=== PATIENT | female | born 1995 | race Caucasian/White ===

== ENCOUNTER 2017-04-05 08:56 | Emergency (ER) | payer MEDICAID ==
[2017-04-05 09:01] VITALS: TEMP 98.1
--- NOTE | 2017-04-05 09:08 | EDPHY ---
H & P Stated Complaint: lower back pain, nausea since this am Time Seen by Provider: 04/05/17 09:08 HPI/ROS: HPI: This is a 21-year-old female who presents with Chief Complaint: lower back pain, nausea since this am Location: Right flank Quality: pain Duration: 1 hour prior to arrival Signs and Symptoms: No fever, + nausea, no vomiting, no diarrhea, no dysuria, no hematuria, no vaginal discharge, no vaginal bleeding Timing: Sudden Severity: Severe Context: Patient complains of sudden onset of sharp constant right flank pain, nonradiating in nature, starting approximately 1 hour prior to arrival. Pain began while she was eating breakfast and sitting down. Denies any concern for muscular strain, heavy lifting or injury. Last menstrual period was 22-28 days ago. Denies any history of kidney stone. Modifying Factors: No [id number] pain medications tried. Comment: ROS: Constitutional: No fever, no chills, no weight loss Eyes: No blurred vision Respiratory: No shortness of breath, no cough Cardiovascular: No chest pain Gastrointestinal: No nausea, no vomiting no diarrhea Genitourinary: No dysuria Extremities: No myalgias Neurologic: No weakness, no numbness Skin: No rashes Hematologic: No bruising, no bleeding MEDICAL/SURGICAL/SOCIAL HISTORY: Generally healthy. Denies any surgical history. . Source: Patient Exam Limitations: No limitations - Personal History LMP (Females 10-55): 22-28 Days Ago Current Tetanus/Diphtheria Vaccine: Unsure Current Tetanus Diphtheria and Acellular Pertussis (TDAP): Unsure - Medical/Surgical History Hx Asthma: No Hx Chronic Respiratory Disease: No Hx Diabetes: No Hx Cardiac Disease: No Hx Renal Disease: No Hx Cirrhosis: No Hx Alcoholism: No Hx HIV/AIDS: No Hx Splenectomy or Spleen Trauma: No Other PMH: denies. no surgeries - Social History Smoking Status: Never smoked - Physical Exam Exam: CONSTITUTIONAL: Young adult female, holding right flank, appears uncomfortable but nontoxic in appearance, awake and alert, no obvious distress HEENT: Atraumatic and normocephalic, PERRL, EOMI. Tympanic membranes clear. Oropharynx clear, no exudate and moist pink mucosa. Airway patent. No lymphadenopathy. No meningismus. Cardiovascular: Normal S1/S2, regular rate, regular rhythm, without murmur rub or gallop. PULMONARY/CHEST: Symmetrical and nontender. Clear to auscultation bilaterally. Good air movement. No accessory muscle usage. Tachypneic. ABDOMEN: Soft, nondistended, nontender, no rebound, no guarding, no peritoneal signs, no masses or organomegaly. + right CVAT. EXTREMITIES: 2/2 pulses, no deformities, no clubbing, no cyanosis or edema. NEUROLOGICAL: no focal neuro deficits. GCS 15. SKIN: Warm and dry, no erythema. no rash. Good capillary refill. Constitutional: Initial Vital Signs Temperature (C) 36.7 C 04/05/17 08:59 Heart Rate 89 04/05/17 08:59 Respiratory Rate 22 H 04/05/17 08:59 Blood Pressure 170/107 H 04/05/17 08:59 O2 Sat (%) 98 04/05/17 08:59 O2 Delivery Mode Room Air Allergies/Adverse Reactions: No Known Allergies Allergy (Unverified 04/05/17 08:58) Home Medications: Medication Instructions Recorded Promethazine HCl 25 mg PO Q4 PRN #12 tablet 04/05/17 Tamsulosin HCl [Flomax 0.4 MG (*)] 0.4 mg PO DAILY #5 cap 04/05/17 levOFLOXACIN [levAQUIN (*)] 750 mg PO DAILY #10 tab 04/05/17 oxyCODONE/APAP 5/325 [Percocet 1 - 2 tab PO Q4H PRN #10 tab 04/05/17 5/325 (*)] Medical Decision Making - Diagnostics Imaging Results: Imaging Impressions Abdomen/Pelvis CT 04/05/17 09:13 Impression: 1. There is evidence for recent passage of a right-sided stone, which currently resides in the posterior right portion of the urinary bladder, measuring 2 x 3 x 2 mm. There is no evidence of nephrolithiasis. 2. Hepatomegaly with diffuse steatosis. 3. There is a 2.5 cm left ovarian cyst. Findings were discussed with Keke Zacarias PA-C at 11:05 AM, on 04/05/2017. Attention: This CT examination is specifically designed to evaluate patients who are clinically suspected of having acute obstructive uropathy. This examination does not use radiographic contrast, and as such, provides only a limited evaluation of the abdomen, pelvis, and retroperitoneum. If there is further clinical suspicion for pathological conditions other than obstructive uropathy, a complete CT evaluation of the abdomen and pelvis utilizing intravenous, oral, and rectal contrast should be considered. ED Course/Re-evaluation: Urinalysis, serum HCG, labs, IV fluids, IV and oral medications, CT abdomen and pelvis ordered Will evaluate for kidney stone. Given 2 L normal saline, p.o. Omer, IV Dilaudid, IV Toradol, IV Zofran with near complete relief of pain Serum glucose noted to be 348; no prior history of diabetes; hemoglobin A1c ordered; patient will need follow-up for new onset type 2 diabetes. Another 1 L normal saline ordered for a total of 2 L. No signs of acute kidney injury; electrolyte imbalance. Potassium 4.4. And no anion gap. No signs of DKA. 1113: called by radiologist who reports 2 mm stone in the bladder with mild right perinephric stranding consistent with mild pyelonephritis. No appendicitis. Incidentally noted a left ovarian cyst of 2.5 cm. Based on antibiogram; given IV Rocephin 1 g and will discharge on Levaquin 750 daily to complete a 10 day course for complicated urinary tract infection/ pyelonephritis. Urine sent for culture Patient is afebrile/tolerating p.o./no signs of SIRS or sepsis, will treat outpatient repeat FSBS 291 UAs consistent with mild dehydration; received 2 L normal saline and drinking oral liquids while in the ER. Advised to push fluids, strain urine, given strainer to take home, take all medications as directed, urology and PCP follow-up Differential Diagnosis: Abdominal pain in a female including but not limited to kidney stone, ovarian cyst, pelvic inflammatory disease, ovarian torsion, urinary tract infection, and appendicitis. - Data Points Laboratory Results: Laboratory Results 04/05/17 09:30 04/05/17 09:30 04/05/17 04/05/17 04/05/17 12:05 09:30 09:30 WBC RBC Hgb Hct MCV MCH MCHC RDW Plt Count MPV Neut % (Auto) Lymph % (Auto) [place] % (Auto) Eos % (Auto) Baso % (Auto) Nucleat RBC Rel Count Absolute Neuts (auto) Absolute Lymphs (auto) Absolute Monos (auto) Absolute Eos (auto) Absolute Basos (auto) Absolute Nucleated RBC Immature Gran % Seg Neutrophils % Lymphocytes % Monocytes % Eosinophils % Immature Gran # Absolute Seg Neuts Absolute Lymphocytes Absolute Monocytes Absolute Eosinophils RBC/WBC/PLT Morphology Atypical Lymphocytes Platelet Estimate Smear Review By Sodium Potassium Chloride Carbon Dioxide Anion Gap BUN Creatinine Estimated GFR Glucose Hemoglobin A1c Pending Estim Average Glucose Pending Calcium Total Bilirubin Conjugated Bilirubin Unconjugated Bilirubin AST ALT Alkaline Phosphatase Total Protein Albumin Lipase Beta HCG, Qual NEGATIVE Urine Color YELLOW Urine Appearance HAZY Urine pH 5.0 (5.0-7.5) Ur Specific Stacy > 1.035 H (1.002-1.030) Urine Protein 2+ H (NEGATIVE) Urine Ketones 1+ H (NEGATIVE) Urine Blood 1+ H (NEGATIVE) Urine Nitrate NEGATIVE (NEGATIVE) Urine Bilirubin NEGATIVE (NEGATIVE) Urine Urobilinogen NEGATIVE EU EU (0.2-1.0) Ur Leukocyte Esterase NEGATIVE (NEGATIVE) Urine RBC Pending Urine WBC Pending Ur Epithelial Cells Pending Urine Glucose 3+ H (NEGATIVE) 04/05/17 04/05/17 09:30 09:30 WBC 9.45 10^3/uL 10^3/uL (3.80-9.50) RBC 5.40 10^6/uL H 10^6/uL (4.18-5.33) Hgb 16.5 g/dL H g/dL (12.6-16.3) Hct 47.2 % H % (38.0-47.0) MCV 87.4 fL fL (81.5-99.8) MCH 30.6 pg pg (27.9-34.1) MCHC 35.0 g/dL g/dL (32.4-36.7) RDW 12.5 % % (11.5-15.2) Plt Count 356 10^3/uL 10^3/uL (150-400) MPV 9.9 fL fL (8.7-11.7) Neut % (Auto) 53.3 % % (39.3-74.2) Lymph % (Auto) 39.9 % % (15.0-45.0) [place] % (Auto) 4.6 % % (4.5-13.0) Eos % (Auto) 1.3 % % (0.6-7.6) Baso % (Auto) 0.4 % % (0.3-1.7) Nucleat RBC Rel Count 0.0 % % (0.0-0.2) Absolute Neuts (auto) 5.04 10^3/uL 10^3/uL (1.70-6.50) Absolute Lymphs (auto) 3.77 10^3/uL H 10^3/uL (1.00-3.00) Absolute Monos (auto) 0.43 10^3/uL 10^3/uL (0.30-0.80) Absolute Eos (auto) 0.12 10^3/uL 10^3/uL (0.03-0.40) Absolute Basos (auto) 0.04 10^3/uL 10^3/uL (0.02-0.10) Absolute Nucleated RBC 0.00 10^3/uL 10^3/uL (0-0.01) Immature Gran % 0.5 % % (0.0-1.1) Seg Neutrophils % 65 % % Lymphocytes % 29 % % Monocytes % 4 % % Eosinophils % 2 % % Immature Gran # 0.05 10^3/uL 10^3/uL (0.00-0.10) Absolute Seg Neuts 6.14 10^/uL 10^/uL (1.70-6.50) Absolute Lymphocytes 2.74 10^3/uL 10^3/uL (1.00-3.00) Absolute Monocytes 0.38 10^3/uL 10^3/uL (0.30-0.80) Absolute Eosinophils 0.19 10^3/uL 10^3/uL (0.03-0.40) RBC/WBC/PLT Morphology NORMAL (NORMAL) Atypical Lymphocytes 2+ H Platelet Estimate ADEQUATE (ADEQ) Smear Review By Pending Sodium 137 mEq/L mEq/L (134-144) Potassium 4.4 mEq/L mEq/L (3.5-5.2) Chloride 102 mEq/L mEq/L (97-110) Carbon Dioxide 19 mEq/l L mEq/l (22-31) Anion Gap 16 mEq/L mEq/L (8-16) BUN 8 mg/dL mg/dL (7-23) Creatinine 0.5 mg/dL L mg/dL (0.6-1.0) Estimated GFR > 60 Glucose 348 mg/dL H mg/dL (70-100) Hemoglobin A1c Estim Average Glucose Calcium 9.4 mg/dL mg/dL (8.5-10.4) Total Bilirubin 0.7 mg/dL mg/dL (0.1-1.4) Conjugated Bilirubin 0.3 mg/dL mg/dL (0.0-0.5) Unconjugated Bilirubin 0.4 mg/dL mg/dL (0.0-1.1) AST 46 IU/L IU/L (14-46) ALT 98 IU/L H IU/L (9-52) Alkaline Phosphatase 103 IU/L IU/L (38-126) Total Protein 7.3 g/dL g/dL (6.3-8.2) Albumin 4.2 g/dL g/dL (3.5-5.0) Lipase 85 IU/L IU/L (23-300) Beta HCG, Qual Urine Color Urine Appearance Urine pH Ur Specific Stacy Urine Protein Urine Ketones Urine Blood Urine Nitrate Urine Bilirubin Urine Urobilinogen Ur Leukocyte Esterase Urine RBC Urine WBC Ur Epithelial Cells Urine Glucose Medications Given: Discontinued Medications Hydrocodone Bitart/Acetaminophen (Omer 5/325) 1 tab PO EDNOW ONE Stop: 04/05/17 09:13 Last Admin: 04/05/17 09:25 Dose: 1 tab Hydromorphone HCl (Dilaudid) 1 mg IVP EDNOW ONE Stop: 04/05/17 09:38 Last Admin: 04/05/17 09:53 Dose: 1 mg Sodium Chloride (Ns) 1,000 mls @ 0 mls/hr IV ONCE ONE; Wide Open PRN Reason: Protocol Stop: 04/05/17 09:13 Last Admin: 04/05/17 09:26 Dose: 1,000 mls Sodium Chloride (Ns) 1,000 mls @ 0 mls/hr IV EDNOW ONE; Wide Open PRN Reason: Protocol Stop: 04/05/17 10:30 Last Admin: 04/05/17 11:00 Dose: 1,000 mls Ceftriaxone Sodium/Dextrose (Rocephin 1 Gm (Premix)) 50 mls @ 100 mls/hr IV EDNOW ONE PRN Reason: Protocol Stop: 04/05/17 11:41 Last Admin: 04/05/17 11:23 Dose: 50 mls Ketorolac Tromethamine (Toradol) 30 mg IVP EDNOW ONE Stop: 04/05/17 09:13 Last Admin: 04/05/17 09:26 Dose: 30 mg Ondansetron HCl (Zofran) 4 mg IVP EDNOW ONE Stop: 04/05/17 09:13 Last Admin: 04/05/17 09:26 Dose: 4 mg Tamsulosin HCl (Flomax) 0.4 mg PO EDNOW ONE Stop: 04/05/17 11:14 Last Admin: 04/05/17 11:23 Dose: 0.4 mg Departure - Departure Disposition: Home, Routine, Self-Care Clinical Impression: Pyelonephritis, Urinary bladder stone, Hyperglycemia Condition: Good Instructions: Urinary Tract Infection in Women (ED), Kidney Infection (ED), Hyperglycemia, Non-Diabetic (ED), Bladder Stones (ED) Additional Instructions: Please rest and drink plenty of fluids. Take all medications as directed. You will need to strain her urine for your kidney stone. If it does not pass in the next several days, please follow-up with Urology. Your serum glucose level is significantly elevated today. You will need to follow up with her primary care provider to determine if you have of new diagnosis of type 2 diabetes mellitus. Your primary care provider will decide if a diabetic medication needs to be started and which one. Please follow diabetic diet in the meantime. You will need to follow up with her primary care provider in the next few days and preferably sometime this week. Referrals: Samra Shearer MD [Primary Care Provider] - As per Instructions Zurdo Pedroza MD [Medical Doctor] - As per Instructions Prescriptions: levOFLOXACIN [levAQUIN (*)] 750 mg PO DAILY #10 tab oxyCODONE/APAP 5/325 [Percocet 5/325 (*)] 1 - 2 tab PO Q4H PRN #10 tab PRN Reason: Pain, Severe Promethazine HCl 25 mg PO Q4 PRN #12 tablet PRN Reason: Nausea/Vomiting, Use 1st Tamsulosin HCl [Flomax 0.4 MG (*)] 0.4 mg PO DAILY #5 cap
[2017-04-05] MEDS: HYDROCODONE/APAP 5/325 TAB PO ONE (09:25)
[2017-04-05] MEDS: ONDANSETRON 4 MG/2 ML VIAL IVP ONE (09:26)
[2017-04-05] MEDS: NS 1,000 ML IV ONE ×2 (09:26→11:00)
[2017-04-05] MEDS: KETOROLAC 30 MG/1 ML SDV IVP ONE (09:26)
[2017-04-05 09:44] LABS: % IMMATURE GRANULYOCYTES 0.5 % (0.0-1.1); ABSOLUTE IMMATURE GRANULOCYTES 0.05 10^3/uL (0.00-0.10); ADD DIFF? NO; ADD MORPH? NO; ADD SCAN? YES; FRAGMENT RBC FLAG 0 (0-99); HEMATOCRIT 47.2 % (38.0-47.0); HEMOGLOBIN 16.5 g/dL (12.6-16.3); LEFT SHIFT FLG 0 (0-99); LIPEMIA HEMOLYSIS FLAG 90 (0-99); MEAN CELL HEMOGLOBIN 30.6 pg (27.9-34.1); MEAN CELL VOLUME 87.4 fL (81.5-99.8); MEAN PLATELET VOLUME 9.9 fL (8.7-11.7); PLATELET CLUMPS FLAG 0 (0-99); PLATELET COUNT 356 10^3/uL (150-400); RED CELL DISTRIBUTION WIDTH 12.5 % (11.5-15.2)
[2017-04-05 09:46] LABS: ATYPICAL LYMPHOCYTE FLAG 100 (0-99)
[2017-04-05] MEDS: HYDROmorphONE/DILAUDID 1 MG/ML INJ IVP ONE (09:53)
[2017-04-05 10:17] LABS: SCAN POSITIVE
[2017-04-05 10:19] LABS: ALANINE AMINOTRANSFERASE 98 IU/L (9-52); ALBUMIN 4.2 g/dL (3.5-5.0); ALKALINE PHOSPHATASE 103 IU/L (38-126); ANION GAP 16 mEq/L (8-16); ASPARTATE AMINOTRANSFERASE 46 IU/L (14-46); BILIRUBIN,TOTAL 0.7 mg/dL (0.1-1.4); BILIRUBIN-CONJUGATED 0.3 mg/dL (0.0-0.5); BILIRUBIN-UNCONJUGATED 0.4 mg/dL (0.0-1.1); CALCIUM 9.4 mg/dL (8.5-10.4); CARBON DIOXIDE 19 mEq/l (22-31); CHLORIDE 102 mEq/L (97-110); CREATININE 0.5 mg/dL (0.6-1.0); GLOMERULAR FILTRATION RATE > 60; GLUCOSE 348 mg/dL (70-100); POTASSIUM 4.4 mEq/L (3.5-5.2); SODIUM 137 mEq/L (134-144); TOTAL PROTEIN 7.3 g/dL (6.3-8.2)
[2017-04-05 10:24] LABS: PLATELET ESTIMATE ADEQUATE (ADEQ)
[2017-04-05] MEDS: TAMSULOSIN HCL 0.4 MG CAP PO ONE (11:23)
[2017-04-05 11:26] VITALS: RESP 18
[2017-04-05 12:17] LABS: COLOR YELLOW; LEUKOCYTE ESTERASE,URINE NEGATIVE (NEGATIVE); NITRITE,URINE NEGATIVE (NEGATIVE)
[2017-04-05 12:22] VITALS: BP 137/95; PULSE 109; O2SAT 93
[2017-04-05 12:23] LABS: BACTERIA TRACE /hpf (NONE SEEN); RBC,URINE 15-25 /hpf (0-3); YEAST PRESENT /hpf (NONE SEEN)
[2017-04-05 13:10] LABS: HEMOGLOBIN A1C 12.5 % (4.0-6.0)
== END 2017-04-05 12:25 | disposition home or self-care (01) ==
DX: N12 Tubulo-interstitial nephritis, not specified as acute or chronic (principal); N21.0 Calculus in bladder; E11.65 Type 2 diabetes mellitus with hyperglycemia; B96.89 Other specified bacterial agents as the cause of diseases classified elsewhere; E86.9 Volume depletion, unspecified
CPT/HCPCS: 96374; J0696; J1170; J1885; J2405